=== PATIENT | female | born 1970 | race Caucasian/White ===

== ENCOUNTER 2018-07-13 23:41 | Emergency (ER) | payer OTHER ==
--- NOTE | 2018-07-13 23:48 | PDOC ---
History of Present Illness - General Chief Complaint: Pain Stated Complaint: L HAND PAIN Time Seen by Provider: 07/13/18 23:44 History Source: Patient Exam Limitations: No Limitations - History of Present Illness Initial Comments: 07/14/18 00:12 This is a 47-year-old female who comes in complaining of some redness and itching of the palm of her left hand over the thenar eminence. Patient is unaware of any contact with substances that cause ALLERGIES. However patient said that her symptoms have improved with time since she has been here in the emergency room. She denies any other complaints. Allergies: as per nursing notes Past Medical History: none Social history: Lives with family. No smoking. No alcohol. No illicit drugs. Surgical history: None General: No fevers or chills, no weakness, no weight loss HEENT: No change in vision. No sore throat,. No ear pain CardioVascular: no chest discomfort. No shortness of breath Respiratory:No cough, or wheezing. Gastrointestinal: no nausea, vomiting, diarrhea or constipation, No rectal bleeding Genitourinary: No dysuria, hematuria, or frequency Musculoskeletal: No joint or muscle pain or swelling Neurologic: No headache, vertigo, dizziness or loss of consciousness Psychiatric: nor depression Skin: No rashes or easy bruising Endocrine: no increased thirst or abnormal weight change Allergic: no skin or latex allergy All other systems reviewed and normal GENERAL: The patient is awake, alert, and fully oriented, in no acute distress. HEAD: Normal with no signs of trauma. EYES: Pupils equal, round and reactive to light, extraocular movements intact, sclera anicteric, conjunctiva clear. EXTREMITIES: Left hand there is some mild erythema over this thenar eminence of the left hand. There is no increase in warmth. There is no tenderness. There is full range of motion without any discomfort. Neurovascular is intact NEUROLOGICAL: Normal speech, normal gait. PSYCH: Normal mood, normal affect. SKIN: Warm, Dry, normal turgor, no rashes or lesions noted Smell and plan: This 47-year-old female with complaint of some redness and itching over the thenar eminence of her left hand. Symptoms appear to have nearly resolved at this time. Patient reassured and discharged home. Past History - Past Medical History Allergies/Adverse Reactions: Allergies Allergy/AdvReac Type Severity Reaction Status Date / Time No Known Allergies Allergy Unverified 07/13/18 23:43 Home Medications: Ambulatory Orders Levothyroxine Sodium [Tirosint] 50 mg PO AM 07/13/18 *DC/Admit/Observation/Transfer Diagnosis at time of Disposition: Left hand pain - Discharge Dispostion Disposition: HOME Condition at time of disposition: Good Decision to Admit order: No - Referrals - Patient Instructions Additional Instructions: Return to the emergency department immediately with ANY new, persistent or worsening symptoms. Continue any medications as previously prescribed by your physician. You should follow up with your primary doctor as soon as possible regarding today's emergency department visit. . Please make sure your doctor reviews the results of your emergency evaluation. Thank you for coming to the Emergency Department today for your care. It was a pleasure to see you today. Please note that your evaluation is INCOMPLETE until you follow-up with your doctor. - Post Discharge Activity
[2018-07-13 23:50] VITALS: BP 129/79; PULSE 70; TEMP 98; BMI 21.6
== END 2018-07-14 00:24 | disposition home or self-care (01) ==
LOC: FER 23:41
DX: M79.642 Pain in left hand (principal)
CPT/HCPCS: 99282-25